=== PATIENT | male | born 1980 | race Two or more races ===

== ENCOUNTER 2023-02-19 09:21 | Outpatient (REF) | payer OTHER, SELFPAY ==
[2023-02-19 11:10] LABS: Erythrocyte Sedimentation Rate 6 MM/HR (0-15)
[2023-02-19 11:35] LABS: Anion Gap 13 (12-20); Blood Urea Nitrogen 14 mg/dL (9-16); Calcium 9.5 mg/dL (8.4-10.2); Carbon Dioxide 25 mmol/L (22-29); Chloride 104 mmol/L (96-108); Estimated Glomerular Filt Rate > 60; Glucose Random 128 mg/dL (60-115); Potassium 4.2 mmol/L (3.3-5.1); Sodium 138 mmol/L (135-145); Thyroid Stimulating Hormone 1.67 uIU/mL (0.32-4.0)
[2023-02-19 11:59] LABS: Folate > 20.0 ng/mL (> or = 4.0); Rheumatoid Factor < 13.0 IU/mL (<15.0); Vitamin B12 898 pg/mL (200-900)
[2023-02-21 08:43] LABS: Lyme Abs Screen <0.90 index
== END 2023-02-19 09:22 | disposition home or self-care (01) ==
LOC: HO.LAB 09:21
PROVIDERS: Visit Provider Psychiatry & Neurology Neurology
DX: G31.84 Mild cognitive impairment of uncertain or unknown etiology (principal)
CPT/HCPCS: 36415; 80048; 82607; 82746; 84443; 85652; 86431; 86617; 86618

== ENCOUNTER → 2023-04-24 08:03 | Outpatient (REF) | payer OTHER, SELFPAY | LOC: HO.SL 08:03 | PROVIDERS: Visit Provider Psychiatry & Neurology Neurology | DX: G47.33 Obstructive sleep apnea (adult) (pediatric) (principal) | CPT/HCPCS: 95806 ==

== ENCOUNTER → 2023-04-24 19:00 | Outpatient (BNV) | payer OTHER, SELFPAY | PROVIDERS: Visit Provider Internal Medicine | DX: G47.33 Obstructive sleep apnea (adult) (pediatric) (principal) | CPT/HCPCS: 95806 ==